=== PATIENT | female | born 1935 | race Caucasian/White ===

== ENCOUNTER 2023-07-26 14:51 | Emergency (ER) | payer MEDICARE, SELFPAY ==
[2023-07-26] VITALS (22 sets, daily range): BP systolic 126–165; BP diastolic 56–87; PULSE 78–109; RESP 14–27; TEMP 36.9; O2SAT 93–98; BMI 28.6
[2023-07-26] MEDS: SODIUM CHLORIDE 0.9% 1,000 ML 1000 ML IV (15:00)
--- NOTE | 2023-07-26 15:04 | EKG_ITS ---
[address] [address] Test Date: 2023-07-26 Pat Name: Evon Fried Department: Room: Gender: Female Weight Engineer: MARCELINO : 1935 Requested By: Order Number: [id number] Reading MD: Kyle Summers Measurements Intervals [place] Rate: 83 P: 42 TN: 190 QRS: 14 QRSD: 74 T: 71 QT: 368 QTc: 432 Interpretive Statements Normal sinus rhythm Cannot rule out Anterior infarct , age undetermined Electronically Signed On 07-26-2023 18:40:34 PDT by Kyle Summers
--- NOTE | 2023-07-26 15:11 | DI.RAD.S_ITS ---
PROCEDURE: XR CHEST 1V INDICATIONS: syncope TECHNIQUE: One view of the chest was acquired. COMPARISON: None. FINDINGS: Surgical changes and devices: None. Lungs and pleura: Mild increased vascularity. No consolidations. Mediastinum: Mediastinal contours appear normal. Heart size is enlarged. Bones and chest wall: No suspicious bony lesions. Overlying soft tissues appear unremarkable. IMPRESSION: Increased vascularity suggestive of edema. Dictated by: Imelda Shin M.D. on 07/26/2023 at 16:03 Approved by: Imelda Shin M.D. on 07/26/2023 at 16:03
--- NOTE | 2023-07-26 15:16 | DI.RAD.S_ITS ---
PROCEDURE: XR KNEE LT 3V INDICATIONS: fall, left knee pain TECHNIQUE: 3 views of the knee were acquired. COMPARISON: None. FINDINGS: Bones: No fractures or dislocations. No suspicious bony lesions. Knee arthroplasty. Hardware is intact without hardware fracture or periprosthetic lucency to suggest loosening. Alignment is stable. Soft tissues: No joint effusion. No suspicious soft tissue calcifications. IMPRESSION: No visualized acute fracture or dislocation. However, if clinical concern and/or pain persist, short interval imaging followup in 7-10 days is recommended, as occult injury cannot be definitively excluded. Dictated by: Imelda Shin M.D. on 07/26/2023 at 16:04 Approved by: Imelda Shin M.D. on 07/26/2023 at 16:04
--- NOTE | 2023-07-26 15:16 | DI.RAD.S_ITS ---
PROCEDURE: XR HIP W PEL IF DONE LT 2V INDICATIONS: left leg pain, fall TECHNIQUE: AP pelvis with lateral view(s) of the left hip(s). COMPARISON: None. FINDINGS: Bones: No fractures or dislocations. Pelvic ring appears intact. No suspicious bony lesions. Severe joint space narrowing as well as subchondral sclerosis and periarticular lucencies are noted within the right hip. Left hip arthroplasty is present. Hardware is intact without hardware fracture or periprosthetic lucency to suggest loosening. Alignment is stable. Degenerative changes are present within the lower lumbar spine. Soft tissues: The visualized bowel gas pattern is normal. No suspicious soft tissue calcifications. 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 Areas of subchondral lucency may represent cysts. However, under appropriate clinical laboratory circumstances, rosea is cannot be excluded. Left hip arthroplasty as above. Dictated by: Imelda Shin M.D. on 07/26/2023 at 16:03 Approved by: Imelda Shin M.D. on 07/26/2023 at 16:04
--- NOTE | 2023-07-26 15:20 | ED.FALL ---
HPI - Fall General Chief Complaint: Fall Stated Complaint: GLF Time Seen by Provider: 07/26/23 15:02 History of Present Illness HPI Narrative: Patient 87-year-old female history of hypertension hyperlipidemia remote PE after surgery presenting today with syncopal episode. She would her has been are visiting from [facility] he had been here for about 5 days. She has had some painful frequent urination since she arrived. She has been taking azo. Today they were out shopping, went to some restaurants she was outside when she had a brief syncopal episode. EMS reports that she was initially hypotensive 67/37. Questionable loss of consciousness takes aspirin but no anticoagulation. She denies any chest pain or palpitations. She has complaining a lot of left knee pain. She has had her hip replaced no real hip or pelvic pain. Denies any cough sore throat or any sort of upper respiratory symptoms Related Data Previous Rx's Medication Instructions Recorded cephalexin 500 mg capsule 500 mg PO BID 7 days #14 caps 07/26/23 hydrocodone 5 mg-acetaminophen 325 1 tab PO Q6H PRN pain #10 tabs 07/26/23 mg tablet Allergies Allergy/AdvReac Type Severity Reaction Status Date / Time No Known Drug Allergies Allergy Verified 07/26/23 16:59 Patient History Social History Smoking Status: Never smoker Smoking Status: Never smoker alcohol intake frequency: a few times a week Substance Use Type: does not use Exam Initial Vital Signs Initial Vital Signs: Vital Signs Pulse Rate 88 07/26/23 14:55 Pulse Oximetry 96 07/26/23 14:55 GENERAL: Alert pleasant well-appearing 87-year-old female HEENT: Head atraumatic,EOMI, pupils reactive, face symmetric, moist mucous membranes CARDIOVASCULAR: Regular rate and rhythm without murmurs, rubs or gallops. RESPIRATORY: Breath sounds equal bilaterally, no wheezes rales or rhonchi. ABDOMEN: Soft, nontender. Normoactive bowel sounds all 4 quadrants. No guarding or rebound. EXTREMITIES: Normal range of motion, no clubbing or edema. Neurovascularly intact Left knee swelling able to flex and extend new internal or external hip pain pelvis stable NEUROLOGICAL: Alert and oriented x4.Normal gait and speech. Marketing Assistant strength equal bilaterally SKIN: Warm, dry, no laceration, no petechiae, no rashes or lesions. Course Orders Ordered: Discontinued Medications Hydrocodone Bitart/Acetaminophen (Hydrocodone/Acet 5/325 Prepack) 1 bottle MISC DIRECTED ONE Stop: 07/26/23 18:19 Last Admin: 07/26/23 18:32 Dose: 1 bottle Documented By: HUSSEIN Sodium Chloride (Normal Saline 0.9%) 1,000 mls @ 1,000 mls/hr IV BOLUS ONE Stop: 07/26/23 16:10 Last Infusion: 07/26/23 15:57 Dose: Infused Documented By: Admin: 07/26/23 15:00 Dose: 1,000 mls/hr Documented By: HUSSEIN Ceftriaxone Sodium 1,000 mg/ (Sodium Chloride) 100 mls @ 200 mls/hr IV NOW ONE Stop: 07/26/23 18:19 Last Infusion: 07/26/23 19:24 Dose: Infused Documented By: Admin: 07/26/23 18:32 Dose: 200 mls/hr Documented By: HUSSEIN Ketorolac Tromethamine (Ketorolac 30 Mg/Ml Vial) 15 mg IV NOW ONE Stop: 07/26/23 16:00 Last Admin: 07/26/23 16:26 Dose: 15 mg Documented By: HUSSEIN Vital Signs Vital signs: Vital Signs - 8 hr 07/26/23 14:55 07/26/23 15:00 07/26/23 15:00 Pulse Rate 88 87 Pulse Rate [Orthostatic Lying] Pulse Rate [Orthostatic Sitting] Pulse Rate [Orthostatic Standing] Respiratory Rate 22 Blood Pressure 128/60 Blood Pressure [Orthostatic Lying] Blood Pressure [Orthostatic Sitting] Blood Pressure [Orthostatic Standing] Pulse Oximetry 96 Oxygen Delivery Method 07/26/23 15:06 07/26/23 15:06 07/26/23 15:07 Pulse Rate 88 84 Pulse Rate [Orthostatic Lying] Pulse Rate [Orthostatic Sitting] Pulse Rate [Orthostatic Standing] Respiratory Rate 16 Blood Pressure 130/63 130/63 Blood Pressure [Orthostatic Lying] Blood Pressure [Orthostatic Sitting] Blood Pressure [Orthostatic Standing] Pulse Oximetry 97 97 Oxygen Delivery Method Room Air Room Air 07/26/23 15:10 07/26/23 15:10 07/26/23 15:20 Pulse Rate 85 Pulse Rate [Orthostatic Lying] Pulse Rate [Orthostatic Sitting] Pulse Rate [Orthostatic Standing] Respiratory Rate 22 Blood Pressure 134/62 126/56 L Blood Pressure [Orthostatic Lying] Blood Pressure [Orthostatic Sitting] Blood Pressure [Orthostatic Standing] Pulse Oximetry 97 Oxygen Delivery Method Room Air 07/26/23 15:20 07/26/23 15:38 07/26/23 15:40 Pulse Rate 84 86 83 Pulse Rate [Orthostatic Lying] Pulse Rate [Orthostatic Sitting] Pulse Rate [Orthostatic Standing] Respiratory Rate 15 Blood Pressure Blood Pressure [Orthostatic Lying] Blood Pressure [Orthostatic Sitting] Blood Pressure [Orthostatic Standing] Pulse Oximetry 98 97 Oxygen Delivery Method Room Air 07/26/23 15:40 07/26/23 16:00 07/26/23 16:00 Pulse Rate 78 Pulse Rate [Orthostatic Lying] Pulse Rate [Orthostatic Sitting] Pulse Rate [Orthostatic Standing] Respiratory Rate 14 Blood Pressure 139/65 143/65 H Blood Pressure [Orthostatic Lying] Blood Pressure [Orthostatic Sitting] Blood Pressure [Orthostatic Standing] Pulse Oximetry 98 Oxygen Delivery Method 07/26/23 16:38 07/26/23 16:38 07/26/23 16:40 Pulse Rate 91 H 92 H Pulse Rate [Orthostatic Lying] Pulse Rate [Orthostatic Sitting] Pulse Rate [Orthostatic Standing] Respiratory Rate 27 H Blood Pressure 165/74 H Blood Pressure [Orthostatic Lying] Blood Pressure [Orthostatic Sitting] Blood Pressure [Orthostatic Standing] Pulse Oximetry Oxygen Delivery Method 07/26/23 16:40 07/26/23 16:41 07/26/23 16:41 Pulse Rate 93 H Pulse Rate [Orthostatic Lying] Pulse Rate [Orthostatic Sitting] Pulse Rate [Orthostatic Standing] Respiratory Rate 22 Blood Pressure 163/77 H 153/72 H Blood Pressure [Orthostatic Lying] Blood Pressure [Orthostatic Sitting] Blood Pressure [Orthostatic Standing] Pulse Oximetry Oxygen Delivery Method 07/26/23 17:00 07/26/23 17:00 07/26/23 17:14 Pulse Rate 87 Pulse Rate [Orthostatic Lying] 87 Pulse Rate [Orthostatic Sitting] 91 H Pulse Rate [Orthostatic Standing] 92 H Respiratory Rate 15 Blood Pressure 154/66 H Blood Pressure [Orthostatic Lying] 165/74 H Blood Pressure [Orthostatic Sitting] 163/77 H Blood Pressure [Orthostatic Standing] 153/72 H Pulse Oximetry 97 Oxygen Delivery Method 07/26/23 17:20 07/26/23 17:20 07/26/23 17:32 Pulse Rate 92 H 104 H Pulse Rate [Orthostatic Lying] Pulse Rate [Orthostatic Sitting] Pulse Rate [Orthostatic Standing] Respiratory Rate 27 H Blood Pressure 163/67 H Blood Pressure [Orthostatic Lying] Blood Pressure [Orthostatic Sitting] Blood Pressure [Orthostatic Standing] Pulse Oximetry 97 Oxygen Delivery Method 07/26/23 17:33 07/26/23 17:33 07/26/23 17:40 Pulse Rate 109 H 85 Pulse Rate [Orthostatic Lying] Pulse Rate [Orthostatic Sitting] Pulse Rate [Orthostatic Standing] Respiratory Rate 23 16 Blood Pressure 142/67 H Blood Pressure [Orthostatic Lying] Blood Pressure [Orthostatic Sitting] Blood Pressure [Orthostatic Standing] Pulse Oximetry 95 97 Oxygen Delivery Method Room Air 07/26/23 17:40 07/26/23 18:00 07/26/23 18:00 Pulse Rate 86 Pulse Rate [Orthostatic Lying] Pulse Rate [Orthostatic Sitting] Pulse Rate [Orthostatic Standing] Respiratory Rate 14 Blood Pressure 152/67 H 140/63 Blood Pressure [Orthostatic Lying] Blood Pressure [Orthostatic Sitting] Blood Pressure [Orthostatic Standing] Pulse Oximetry 93 Oxygen Delivery Method Room Air MDM - Fall Lab Data 07/26/23 14:40 07/26/23 14:40 Labs: Lab Results 07/26/23 07/26/23 Range/Units 14:40 16:51 WBC 13.3 H (4.5-11.0) X10^3/uL RBC 4.22 (4.0-5.2) X10^6/uL Hgb 12.0 (12.0-16.0) g/dL Hct 35.7 L (36-46) % MCV 84.5 (80-100) fL MCH 28.5 (26-34) PG MCHC 33.7 (30-36) % RDW 14.1 (11.6-14.8) % Plt Count 312 (150-400) X10^3/uL Neut % (Auto) 72.6 (50-75) % Lymph % (Auto) 17.4 L (25-40) % [place] % (Auto) 6.6 (3-14) % Eos % (Auto) 3.1 (2-4) % Baso % (Auto) 0.3 (0-2) % Neut # (Auto) 9600 H (8708-7584) /uL Lymph # (Auto) 2300 (3931-1094) /uL Garrett # (Auto) 900 (0-900) /uL Eos # (Auto) 400 (0-450) /uL Baso # (Auto) 0 (0-100) /uL PT 10.9 (9.4-12.5) SECONDS INR 1.0 (0.9-1.3) APTT 26 (25.1-36.5) SECONDS Sodium 130 L (137-145) mmol/L Potassium 3.9 (3.4-5.1) mmol/L Chloride 103 (98-107) mmol/L Carbon Dioxide 22 (22-32) mmol/L BUN 16 (7-17) mg/dL Creatinine 0.84 (0.52-1.04) mg/dL Estimated GFR > 60 (>60) mL/min BUN/Creatinine Ratio 19.0 (6-22) Glucose 158 H (80-110) mg/dL Lactate 2.0 (0.7-2.1) mmol/L Calcium 8.3 L (8.4-10.2) mg/dL Total Bilirubin 0.9 (0.2-1.3) mg/dL AST 34 (14-36) IU/L ALT 19 (<35) IU/L Alkaline Phosphatase 97 (38-126) U/L Total Creatine Kinase 45 (30-135) U/L Troponin I < 0.012 (0.01-0.034) ng/mL Total Protein 6.7 (6.3-8.2) g/dL Albumin 3.7 (3.5-5.0) g/dL Globulin 3.0 (1.7-4.1) g/dL Albumin/Globulin Ratio 1.2 (1.0-2.8) Lipase 95 (23-300) U/L Procalcitonin 0.051 (<0.5) ng/mL Urine Color [place] Urine Appearance Sl cloudy Urine pH 6.5 (4.5-8.0) Ur Specific [place] <=1.005 (1.000-1.035) Urine Protein Trace H (Negative) Urine Glucose (UA) Negative (Negative) g/dL Urine Ketones 1+ H (NEGATIVE) Urine Occult Blood Trace-intact (Negative) Urine Nitrate Positive H (Negative) Urine Bilirubin Negative (NEGATIVE) Urine Urobilinogen 2.0 H (0.2) E.U./dL Ur Leukocyte Esterase 2+ H (NEGATIVE) Urine RBC 1-5/hpf (0-5/HPF) Urine WBC 30-100/hpf H (0-5/HPF) Ur Squamous Epith Cells 0-1 /hpf (0-5/HPF) Urine Bacteria Few (2-10) H (None) Ur Culture Indicated? Specimen cultured Vol Urine Centrifuged 10ml (spun) Urine Dip Bedside Urine Glucose Negative Bedside Urine Bilirubin + 1 Bedside Urine Ketone +/- 5 Urine Specific [place] 1.010 Bedside Urine Occult Blood - Negative Bedside Urine pH 6.0 Bedside Urine Protein - Negative Bedside Urine Urobilinogen +/- 1mg Bedside Urine Nitrite + Positive Bedside Urine Leukocytes ++ 125 Esterase Imaging Data Chest x-ray: Radiologist's Impression: PROCEDURE: XR CHEST 1V INDICATIONS: syncope TECHNIQUE: One view of the chest was acquired. COMPARISON: None. FINDINGS: Surgical changes and devices: None. Lungs and pleura: Mild increased vascularity. No consolidations. Mediastinum: Mediastinal contours appear normal. Heart size is enlarged. Bones and chest wall: No suspicious bony lesions. Overlying soft tissues appear unremarkable. IMPRESSION: Increased vascularity suggestive of edema. Dictated by: Imelda Shin M.D. on 07/26/2023 at 16:03 Extremity x-ray #1: Radiologist's Impression: PROCEDURE: XR HIP W PEL IF DONE LT 2V INDICATIONS: left leg pain, fall TECHNIQUE: AP pelvis with lateral view(s) of the left hip(s). COMPARISON: None. FINDINGS: Bones: No fractures or dislocations. Pelvic ring appears intact. No suspicious bony lesions. Severe joint space narrowing as well as subchondral sclerosis and periarticular lucencies are noted within the right hip. Left hip arthroplasty is present. Hardware is intact without hardware fracture or periprosthetic lucency to suggest loosening. Alignment is stable. Degenerative changes are present within the lower lumbar spine. Soft tissues: The visualized bowel gas pattern is normal. No suspicious soft tissue calcifications. 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 Areas of subchondral lucency may represent cysts. However, under appropriate clinical laboratory circumstances, rosea is cannot be excluded. Left hip arthroplasty as above. Dictated by: Imelda Shin M.D. on 07/26/2023 at 16:03 Extremity x-ray #2: Radiologist's Impression: PROCEDURE: XR KNEE LT 3V INDICATIONS: fall, left knee pain TECHNIQUE: 3 views of the knee were acquired. COMPARISON: None. FINDINGS: Bones: No fractures or dislocations. No suspicious bony lesions. Knee arthroplasty. Hardware is intact without hardware fracture or periprosthetic lucency to suggest loosening. Alignment is stable. Soft tissues: No joint effusion. No suspicious soft tissue calcifications. IMPRESSION: No visualized acute fracture or dislocation. However, if clinical concern and/or pain persist, short interval imaging followup in 7-10 days is recommended, as occult injury cannot be definitively excluded. Dictated by: Imelda Shin M.D. on 07/26/2023 at 16:04 ECG Data Interpretation: Normal sinus rhythm rate 83 MT interval 190 QRS [address] changes or T-wave inversions MDM Narrative Medical decision making narrative: Patient is a 87-year-old female presenting today after syncopal episode. She has been having UTI symptoms for about 5 days she has been out in the heat. Brief loss of consciousness not on anticoagulation no significant sign of head injury. Blood work has been reviewed pertinent information does show leukocytosis of 13, with lactate 2.0, creatinine 0.8 troponin negative, procalcitonin 0.051 Urinalysis positive for nitrates and leukocytes consistent with UTI Imaging has been reviewed knee x-ray hip x-ray no fracture chest x-ray does show pulmonary edema but she has not having any sort of shortness of breath or hypoxia and she has no history of congestive heart failure. Patient is given a L of fluid blood pressure remained stable. She has given a dose of Rocephin here in the ED. They are traveling not able to do a pharmacy tonight. Given a prepack and [place] as well. Patient did ambulate with a knee brace and a walker but it was difficult she was able to get around. At this time she likely has a left knee sprain it is painful but no fracture. At this time does not meet any sort of admission criteria. Discharge Plan Departure Patient Disposition: Home Clinical Impression: Syncope, Left knee sprain, Acute UTI Instructions: Knee Sprain, DI for Urinary Tract Infection (UTI) Activity Restrictions/Additional Instructions: *You have been diagnosed with left knee sprain, UTI *What to do: At this time wear knee brace while ambulatory may take off at night if needed. Ice and elevate 20-30 minutes at a time. Antibiotics should start making you feel better in the next 2-3 days *Continue to take medications as directed Ibuprofen 400 mg every 6 hours for [id number] pain Tylenol 650 mg every 4-6 hours if needed for [id number] Keflex 500 mg twice a day for 7 days [place] half tablet or 1 full tablet every 6 hours or at nighttime if needed for severe pain *Follow up with your primary care provider in 2-3 days or call [phone] *Return to ER if you should have increasing pain weakness passing out or any new, worsening or concerning symptoms CONTROLLED SUBSTANCE DISCHARGE (Narcotoic/benzodiazepine/Flexeril/Phenergan) 1. You have been prescribed narcotic medications, it does have acetaminophen/Tylenol/paracetamol in it, DO NOT TAKE MORE THAN 4,00mg in 24 hours of Tylenol. TRAMADOL DOES NOT CONTAIN TYLENOL 2. Please understand that we cannot provide further refills of narcotics, benzodiazepines or controlled substances through the ED and her pain management will need to be through your provider. 3. While on these medications you cannot drive or operate heavy machinery. 4. You cannot sign legal documents or perform any duties such as this. 5. As long as you're taking opiate pain medications he should also be taking a stool softener such as Colace, Dulcolax, MiraLAX or prune juice, to help avoid constipation. Prescriptions: New hydrocodone-acetaminophen 5-325 mg tablet 1 tab PO Q6H PRN (Reason: pain) Qty: 10 0RF cephalexin 500 mg capsule 500 mg PO BID 7 Days Qty: 14 0RF Referrals: Miscellaneous,DoctorMD [Primary Care Provider] - Stand Alone Forms: Patient Portal/API
[2023-07-26 15:22] LABS: Add Manual Diff / Slide Review NO; Basophils Absolute Auto 0 /uL (0-100); Basophils Percent Auto 0.3 % (0-2); Eosinophils Absolute Auto 400 /uL (0-450); Eosinophils Percent Auto 3.1 % (2-4); Hematocrit 35.7 % (36-46); Lymphocytes Absolute Auto 2300 /uL (1100-4500); Lymphocytes Percent Auto 17.4 % (25-40); Mean Corpuscular HGB Conc 33.7 % (30-36); Mean Corpuscular Hemoglobin 28.5 PG (26-34); Mean Corpuscular Volume 84.5 fL (80-100); Monocytes Absolute Auto 900 /uL (0-900); Monocytes Percent Auto 6.6 % (3-14); Neutrophils Absolute Auto 9600 /uL (1500-7000); Neutrophils Percent Auto 72.6 % (50-75); Platelet Count 312 X10^3/uL (150-400); Red Blood Cell Count 4.22 X10^6/uL (4.0-5.2); Red Cell Distribution Width 14.1 % (11.6-14.8); White Blood Cell Count 13.3 X10^3/uL (4.5-11.0)
[2023-07-26 15:24] LABS: Prothrombin Time 10.9 SECONDS (9.4-12.5)
[2023-07-26 15:26] LABS: PTT Partial Thromboplastin Tim 26 SECONDS (25.1-36.5)
[2023-07-26 15:29] LABS: Alanine Aminotransferase 19 IU/L (<35); Albumin 3.7 g/dL (3.5-5.0); Albumin Globulin Ratio 1.2 (1.0-2.8); Alkaline Phosphatase 97 U/L (38-126); Aspartate Aminotransferase 34 IU/L (14-36); Bilirubin Total 0.9 mg/dL (0.2-1.3); Blood Urea Nitrogen 16 mg/dL (7-17); Calcium 8.3 mg/dL (8.4-10.2); Carbon Dioxide 22 mmol/L (22-32); Chloride 103 mmol/L (98-107); Creatine Kinase 45 U/L (30-135); Estimated Glomerular Filt Rate > 60 mL/min (>60); Glucose 158 mg/dL (80-110); HEMOLYSIS < 15 (0-50); Lipase 95 U/L (23-300); Potassium 3.9 mmol/L (3.4-5.1); Sodium 130 mmol/L (137-145); Total Protein 6.7 g/dL (6.3-8.2)
[2023-07-26 15:40] LABS: Troponin I < 0.012 ng/mL (0.01-0.034)
[2023-07-26 16:12] LABS: Procalcitonin 0.051 ng/mL (<0.5)
[2023-07-26] MEDS: KETOROLAC 30 MG/ML VIAL 15 MG IV (16:26)
[2023-07-26 17:55] LABS: Appearance Urine UA SL CLOUDY; Bilirubin Urine UA NEGATIVE (NEGATIVE); Color Urine UA ORANGE; Glucose Urine UA NEGATIVE (Negative); Ketones Urine UA 1+ (NEGATIVE); Leukocyte Esterase Urine UA 2+ (NEGATIVE); Nitrite Urine UA POSITIVE (Negative); Occult Blood Urine UA TRACE-INTACT (Negative); Protein Urine UA TRACE (Negative); Specific Gravity Urine UA <=1.005 (1.000-1.035)
[2023-07-26 18:04] LABS: Bacteria Urine Few (2-10); Culture Indicated Urine Specimen Cultured; RBC Urine 1-5/HPF (0-5/HPF); Squamous Epithelial Cell Urine 0-1 /HPF (0-5/HPF); Urine Volume 10mL (spun); WBC Urine 30-100/HPF (0-5/HPF); pH Urine UA 6.5 (4.5-8.0)
[2023-07-26] MEDS: HYDROCODONE/ACET 5/325 PREPACK 1 BOTTLE MISC (18:32)
[2023-07-26] MEDS: cefTRIAXone 1,000 MG in SODIUM CHLORIDE 0.9% 100 ML 200 MG IV (18:32)
== END 2023-07-26 19:47 | disposition home or self-care (01) ==
PROVIDERS: Emergency Provider Emergency Medicine
DX: S82.002A Unspecified fracture of left patella, initial encounter for closed fracture (principal); M97.12XA Periprosthetic fracture around internal prosthetic left knee joint, initial encounter; W18.30XA Fall on same level, unspecified, initial encounter; R55 Syncope and collapse; N39.0 Urinary tract infection, site not specified
CPT/HCPCS: 36415; 71045; 73502; 73562; 80053; 81001; 81003; 82550; 83605; 83690; 84145; 84484; 85025; 85610; 85730; 87040; 87086; 93005; 99284; J0696; J1885

== ENCOUNTER 2023-07-27 15:36 | Observation (INO) | payer MEDICARE, SELFPAY ==
[2023-07-27 16:00] VITALS: BP 185/82; PULSE 85; RESP 16; TEMP 36.2; O2SAT 96
[2023-07-27 16:14] VITALS: BMI 26.5
[2023-07-27] MEDS: ACETAMINOPHEN 325 MG TABLET 650 MG PO (17:55)
[2023-07-27] MEDS: diphenhydrAMINE 50 MG/ML VIAL IV (17:56)
[2023-07-27] MEDS: OXYCODONE IR 5 MG TABLET PO (17:56)
[2023-07-27] MEDS: ONDANSETRON 4 MG/2 ML INJ IV (17:56)
[2023-07-27 19:00] VITALS: BP 145/71; PULSE 75; RESP 18; TEMP 36.8; O2SAT 95
--- NOTE | 2023-07-27 19:06 | PC.NURSE ---
Late entry, pt arrived to the floor at approximately 1600. She was a direct admit from Dr. Crisostomo. Pt is A&Ox4, oriented to the room, able to make needs known. Informed the pt that she's non-weight bearing. Pt has a brace on her left leg.
--- NOTE | 2023-07-27 19:32 | PM.HP.1 ---
History of Present Illness History of Present Illness Date Patient Seen: 07/27/23 Chief complaint: LT FEMUR FRACTURE Narrative: 87-year-old female seen in my clinic today. She had presented to the emergency department yesterday and initially radiographs were read as negative however subsequent over-read indicated that she had a fracture. She was called with these results and brought to my clinic for determination of management. She has been here from [facility]. She was in [place] when the injury occurred. She reports that she got lightheaded and fell. Workup in the emergency department indicated that she had a urinary tract infection. She has been prescribed antibiotics for this. 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 These were both performed by Luis Lam in [place]. She reports pain in her left knee. She says it is worsened by movement and partially alleviated by rest. It has been present since the time of [facility] Social History household members: significant other Smoking Status: Never smoker alcohol intake: current Meds Home Medications and Allergies Home Medications Medication Instructions Recorded Confirmed Type Adult Probiotic 2 cap PO PRN PRN GUT 07/27/23 07/27/23 History Calcium-Vitamin D See Rx Instructions .Route .COMPLEX 07/27/23 07/27/23 History CoQ10 SG 100 1 tab PO DAILY 07/27/23 07/27/23 History Glucosamine Chondroitin 1 tab PO BID 07/27/23 07/27/23 History Pravachol 1 PO BEDTIME 07/27/23 History Singulair 1 PO DAILY 07/27/23 History albuterol inhalation PRN PRN SOB 07/27/23 History amlodipine 5 mg tablet 5 mg PO DAILY 07/27/23 07/27/23 History aspirin 81 mg tablet,delayed 81 mg PO DAILY 07/27/23 07/27/23 History release calcitriol 0.5 mcg capsule 0.5 mcg PO DAILY 07/27/23 07/27/23 History cetirizine 10 mg tablet (Zyrtec) PO DAILY 07/27/23 History fluorometholone 0.1 % eye 1 drp EYE-BOTH Q OTHER DAY 07/27/23 07/27/23 History drops,suspension (FML Liquifilm) fluticasone furoate 100 1 ea inhalation DAILY 07/27/23 07/27/23 History mcg-vilanterol 25 mcg/dose inhalation powder (Breo Ellipta) fluticasone propionate 50 2 spray intranasal DAILY 07/27/23 07/27/23 History mcg/actuation nasal spray,suspension guaifenesin 600 mg tablet, 600 mg PO BID 07/27/23 07/27/23 History extended release 12 hr (Mucinex) levothyroxine 88 mcg tablet 88 mcg PO DAILY 07/27/23 07/27/23 History (Synthroid) losartan 50 mg tablet 75 mg PO DAILY 07/27/23 07/27/23 History mecobalamin-levomefolate 1 tab PO DAILY 07/27/23 07/27/23 History calcium-pyridoxal phos 3 mg-35 mg-2 mg tablet omeprazole 20 mg capsule,delayed 20 mg PO BID 07/27/23 07/27/23 History release Allergies Allergy/AdvReac Type Severity Reaction Status Date / Time No Known Drug Allergies Allergy Verified 07/26/23 16:59 Review of Systems Review of Systems ROS: Yes All systems reviewed with the patient and are negative except as otherwise documented Exam Vital Signs (past 8 hours): - 07/27/23 16:00 Temperature 97.2 F L Pulse Rate 85 Respiratory Rate 16 Blood Pressure 185/82 H Pulse Oximetry 96 Oxygen Flow Rate 0 Oxygen Flow Rate 0 Narrative Exam Narrative: Left lower extremity examination demonstrates a well-healed surgical incision over the anterior knee. There is swelling present around the thigh and ecchymosis. She is tender to palpation in the medial femoral condyle. Range of motion examination deferred given known injury. Sensation intact to light touch in the entire foot. Const General: cooperative Orientation: alert and awake [facility] Head: normal to inspection Ears: hearing grossly normal bilaterally Eyes General: appearance normal, both eyes and all related structures Neck Neck: normal visual inspection Resp Effort & Inspection: normal respiratory effort and able to speak in complete sentences Cardio Pulses: other (peripheral pulses present) Skin Lesions: no lesions Rashes: no rashes Neuro General: patient alert, patient awake and moves all extremities Psych Appearance: grossly normal Objective Imaging Left femur radiographs: My impression: Nondisplaced medial femoral condyle fracture above a prior total knee arthroplasty Assessment & Plan Assessment and plan (1) Closed left femoral fracture: Status: Acute Plan I had a long discussion with the patient today as well as her family including her power of city attorney over the phone. Her fracture did not displace in remains well aligned on both the AP and lateral views. I discussed with her that operative fixation could allow earlier mobilization but would involve a major surgery. It 87 she is very reticent to pursue this. This is understandable. With nonweightbearing to her injured extremity if we are able to maintain the knee in its current alignment it should heal and allow methodist of her function following healing. While there certainly is a consideration of pursuing fixation, in her case I think that if we are able to avoid surgery in a patient of her age and medical condition it would obviously be referable. I have accordingly therefore recommended we begin with nonweightbearing restrictions and place her in a knee immobilizer. Because of the social difficulties associated with maintaining this while she is away from home, I have admitted her to the hospital. She is adamant that she would like to returned to [place] for convalescence however it will be very challenging to coordinate the logistics of this travel. I therefore would greatly appreciate the assistance of social work and physical therapy in determining whether or not it is feasible for her to make that trip while maintaining nonweightbearing precautions in order to allow her to return home. We can have further discussions about operative fixation as well however it was the family strong preference to avoid surgery if at all possible. Quality VTE Deep Vein Thrombosis/Pulmonary Embolism Present on Admission: No
--- NOTE | 2023-07-27 21:22 | P.PN_ITS ---
Subjective Subjective Interval history: I had another conversation with the patient and her family this evening. Her situation represents a challenging decision. Her fracture is very well aligned and would heal without surgery but there are real consequences to the duration of immobility that would be required to allow her to reliably heal this. I have real concerns about her risk of a development of a blood clot or about her ability to regain her mobility following the atrophy of 2 months of minimized am bulation. Additionally should she have propagation of the fracture into her total knee it could destabilize her total knee resulting in requirement of distal femoral replacement. Fixation of her fracture would allow earlier mobilization but she would still have impaired mobility, still might not be able to travel back to [place] in the near future, and still might require a stay in a nursing facility temporarily. I do not think that there was a clear cut definitive right answer in the situation and will have further discussions moving forward with the family regarding operative versus nonoperative treatment Exam Vital Signs (past 8 hours): - 07/27/23 16:00 07/27/23 19:00 Temperature 97.2 F L 98.2 F Pulse Rate 85 75 Respiratory Rate 16 18 Blood Pressure 185/82 H 145/71 H Pulse Oximetry 96 95 Oxygen Flow Rate 0 0 Oxygen Flow Rate 0 PFSH Social History household members: significant other Smoking Status: Never smoker alcohol intake: current Quality VTE Deep Vein Thrombosis/Pulmonary Embolism Present on Admission: No
[2023-07-27] MEDS: ASPIRIN EC 81 MG TABLET PO (22:00)
[2023-07-27] MEDS: DOCUSATE 100 MG CAPSULE PO (22:00)
[2023-07-27] MEDS: LACTOBACILLUS ACIDOPHILUS TABLET 2 EACH PO (22:00)
[2023-07-27] MEDS: FLUTICASONE 120 SPRAY/16 GM SPRAY.SUSP NASAL (22:00)
[2023-07-27] MEDS: guaiFENesin ER 600 MG TAB PO (22:00)
[2023-07-27] MEDS: PANTOPRAZOLE DR 20 MG TABLET PO (22:06)
[2023-07-27] MEDS: TRAMADOL 50 MG TABLET PO (22:08)
[2023-07-27] MEDS: AMLODIPINE 5 MG TABLET PO (22:09)
[2023-07-27] MEDS: diphenhydrAMINE 25 MG TABLET 50 MG PO (22:09)
[2023-07-28 06:50] LABS: Hematocrit 35.5 % (36-46); Mean Corpuscular HGB Conc 33.8 % (30-36); Mean Corpuscular Hemoglobin 28.6 PG (26-34); Mean Corpuscular Volume 84.5 fL (80-100); Platelet Count 262 X10^3/uL (150-400); Red Cell Distribution Width 14.1 % (11.6-14.8); White Blood Cell Count 10.3 X10^3/uL (4.5-11.0)
[2023-07-28] MEDS: LEVOTHYROXINE 88 MCG TABLET PO (06:59)
[2023-07-28] MEDS: PANTOPRAZOLE DR 20 MG TABLET PO (06:59)
[2023-07-28] MEDS: ACETAMINOPHEN 325 MG TABLET 650 MG PO ×3 (06:59→22:46)
[2023-07-28 08:00] VITALS: BP 151/69; PULSE 89; RESP 16; TEMP 36.6; O2SAT 99
[2023-07-28] MEDS: ASPIRIN EC 81 MG TABLET PO (09:00)
[2023-07-28] MEDS: LOSARTAN 50 MG TABLET 75 MG PO (09:00)
[2023-07-28] MEDS: polyethylene glycoL 3350 17 GM POWD.PACK PO (09:00)
[2023-07-28] MEDS: DOCUSATE 100 MG CAPSULE PO ×2 (09:01→20:08)
[2023-07-28] MEDS: BUDESONIDE 0.5 MG/2 ML NEB INH ×2 (09:53→19:29)
[2023-07-28 09:54] VITALS: PULSE 80; RESP 16
--- NOTE | 2023-07-28 10:40 | PT.IIE ---
Current Diagnoses Unspecified fracture of left femur, initial encounter for closed fracture (07/27/23) Physical Therapy Inpatient Evaluation/Re-Eval M1 PT/OT-IP Prior Functional Status Start: 07/28/23 14:36 Freq: NEEDED Status: Active Protocol: Document 07/28/23 10:40 AB (Rec: 07/28/23 14:50 AB [id number]) Medical Review Prior Functional Status Medical History Reviewed Yes Communication able to make needs known Mobility and Gait pt stated that she was independent with all mobilities and ambulation without AD Social History Household Members significant other Living Arrangements House Number of Floors (Floors) One Floor Number of Stairs To Enter/Railing? pt lives in [place] and here in [place] with significant other visiting family home set up provided was regarding significant other's daughter's house: 2 platform step to enter Home Environment High Toilet,Tub/Shower M2 PT-IP Current Condition Start: 07/28/23 14:36 Freq: NEEDED Status: Active Protocol: Document 07/28/23 10:40 AB (Rec: 07/28/23 14:50 AB [id number]) Physical Therapy Current Condition Current Condition Evaluation Date 07/28/23 Treatment Diagnosis L distal femur fx; difficulty in walking Onset Date 07/27/23 M3 PT-IP Subjective Start: 07/28/23 14:36 Freq: NEEDED Status: Active Protocol: Document 07/28/23 10:40 AB (Rec: 07/28/23 14:50 AB [id number]) Subjective Physical Therapy Visit Type Type Initial Evaluation Visit Start Time 10:40 Visit Stop Time 11:25 Number of STRING STUDIES DIRECTOR Visits 0 Physical Therapy Visit Comments Patient Comments agreeable to do PT Therapy Pain Assessment Pain When Pain Assessed At Rest Pain Present Pain Present Pain Reported Location Left Leg Intensity 2 Scale Used Numeric (0 - 10) Pain Behaviors Guarding Pain Management Techniques Apply Cold,Modification of Treatment,Re-positioning, Timing of Activity with Medications M4 PT-IP Mobility and Gait Start: 07/28/23 14:36 Freq: NEEDED Status: Active Protocol: Document 07/28/23 10:40 AB (Rec: 07/28/23 14:50 AB [id number]) PT-Bed Mobility Assessment Supine to Sit Supine to Sit Minimal Assistance PT-Transfer Assessment Sit to and From Stand Sit to and from Stand Maximum Assistance,1 Person Assistance,2 Person Assistance ,Use of Upper Extremities Equipment Transfer Assistive Device Gait Belt,Front Wheeled Walker Orthotic/Prosthetic Devices or Brace: No Transfers Transfer Destination Chair Transfer Technique Stand Step Pivot Transfer Ability Level of Assist Maximum Assistance,1 Person Assistance,2 Person Assistance ,Use of Upper Extremities Comments Mobility Comments pt supine in bed. significant other in room with pt. obtained PLOF and home set up from pt. pt s/p fall and sustained a L distal femur fx and no surgery at this time but pt is on a knee immobilizer and will be NWB on LLE. readjusted knee immobilizer in supine. BP in supine: 141/70. pt completed supine to sit min A and max cues. able to sit on EOB CGA. educated pt on how to maintain NWB on LLE for sit <>stand and transfers. pt completed sit to stand max A and max cues. completed stand pivot transfer using FWW initially max A x 1 and max cues but increase assistance to max A x 1-2 midway with transfer as pt was trying to sit midway during turning towards the chair. pt stated that she is tired just by doing the transfer and refused to ambulated. agreed to stay up on the chair. positioned pt on the chair. call light and table placed within reach. PT-Balance Assessment Sitting Balance and Reactions Static Sitting Balance Ability Good Dynamic Sitting Balance Ability Fair Standing Balance and Reactions Static Standing Balance Ability Poor Dynamic Standing Balance Ability Poor Device Used FWW M5 PT-IP Objective Assessments Start: 07/28/23 14:36 Freq: NEEDED Status: Active Protocol: Document 07/28/23 10:40 AB (Rec: 07/28/23 14:50 AB [id number]) Orientation Orientation/Cognition Level of Alertness Alert Orientation Name,Place,Situation Language Function Ability Hard of Hearing Safety Awareness Decreased Safety Awareness Memory Description Short Term Impaired Gross Range of Motion Lower Extremity ROM Assessment Within Functional Limits Impairments L knee NT Coordination Assessment Gross Coordination Gross Coordination WNL Muscle Tone Muscle Tone WNL Yes M6 PT-IP Treatment Start: 07/28/23 14:36 Freq: NEEDED Status: Active Protocol: Document 07/28/23 10:40 AB (Rec: 07/28/23 14:50 AB [id number]) Physical Therapy Treatment Education Education Provided Precautions,Weight Bearing Status,Safety M7 PT-IP Assessment and Plan Start: 07/28/23 14:36 Freq: NEEDED Status: Active Protocol: Document 07/28/23 10:40 AB (Rec: 07/28/23 14:50 AB [id number]) PT Summary Assessment and Plan Potential Rehabilitation Potential Fair Status of Condition at Evaluation Evolving Summary Impairments Pain,ROM,Strength,Balance, Coordination,Sensation,Tone, Cognition,Bed Mobility, Transfers,Gait,Activity Tolerance Assessment Summary pt is an 87 y/o F s/p fall who sustained a L distal femur fx and not surgical intervention at this time. pt is NWB on LLE and is on a knee immobilizer. pt requiring max A x 1-2 for transfers using FWW and max cues. pt will require SNF rehab to improve overall strength and mobility. Goals Bed Mobility Goal Independent Transfer Goal Contact Guard Assistance,Front Wheeled Walker Gait Goal Contact Guard Assistance,Front Wheel Walker Gait Distance 25 Other Goals improve transfers using FWW mod I; ambulation using FWW ~ 40 ft SBA Days to Meet Goals 10 Frequency of Treatment Frequency Of Treatment Once a Day Treatment Plan Physical Therapy Treatment Plan Bed Mobility Training,Transfer Training,Gait Training, Therapeutic Exercise,Balance Retraining,Post Op Education, Discharge Planning,Hot or Cold Pack,Neuromuscular Re-ed, Coordination Retraining,Manual Therapy Precautions Brace L knee immobilizer Weight Bearing Status Weight Bearing Status Non-Weight Bearing Allowed Weight Bearing Amount (enter % LLE NWB or #) (%) Recommendations To Nursing Amount of Assist Needed 2 Person Assist Discharge Recommendations PT Discharge Recommendations SNF Rehab Transportation Needs at Discharge Wheelchair/Cabulance
[2023-07-28] MEDS: ALBUTEROL 2.5 MG/3 ML NEB (ADULT) INH (13:43)
[2023-07-28 13:46] VITALS: PULSE 76; RESP 16; O2SAT 97
[2023-07-28] MEDS: cephALEXin 250 MG CAPSULE 500 MG PO ×2 (14:55→20:08)
--- NOTE | 2023-07-28 15:39 | CM.DANOTE ---
Assessment: Pt is a 87yo female, resident of [place], [place], is admitted for a left femure fracture. Pt lives in a house with her significant other, Choco. Pt's insurance is Medicare and [employer]. Reviewed chart and team rounds for pt's medical status and initial discharge needs. DCP met w/patient at bedside; introduced self and role. Pt was found sitting up a chair, alert and oriented, cooperative with assessment. Pt confirmed living situation in [place] and good support in significant other and daugher. Pt expressed preference in returning home and that she has a return flight to [place] on Monday. Pt awaiting to speak with Dr. Hernandez about plans for discharge, pt endorsed that she is not agreeable to the recommendation of surgery at this time. Pt reports although she is non weightbearing, she has very minimal pain and believes she can return home with proper coordination. Pt denied any discharge needs at this time. Plan: Awaiting PT/OT evaluations and coordination with ortho. CM team will plan to follow clinical course closely for coordination of discharge plan. LEESA Livingston Discharge Planning/Care Management Discharge Assessment Start: 07/28/23 15:37 Freq: Status: Active Protocol: Document 07/28/23 15:37 MW (Rec: 07/28/23 15:39 MW [id number]) Discharge Planning Assessment Assigned Silo Erector RADHA Malcolm DPBERNIE/Assigned Designee Name Choco Patterson, Significant Other Contact Information [phone] Advance Directives? No History Provided By Patient,Medical Record Has Patient been admitted in last 30 No days? Prior Living Arrangements House Household Members significant other Type of transporation used prior to Drives own vehicle admit Independent with ADL's Yes Is patient alert and oriented? Yes Caregiver for Another No Barriers to Discharge Yes Comment Patient lives in [place] and is only visiting when this happened. Discharge pending medical clearance for a safe transfer/flight back home. Discharge Plan Home Whiteboard Updated in Patient Room with Yes name and ext. # of Silo Erector Comment [phone] Please Provide Date Initial DC 07/28/23 Assessment Was Performed Next Review Type Continued Stay Review
--- NOTE | 2023-07-28 16:58 | P.PN_ITS ---
Subjective Subjective Interval history: I saw the patient again this morning as well as this afternoon. I just had a long conversation with her power of compliance attorney, her [id number], who lives in [place]. Since her presentation yesterday I have had more time to think about her situation and think that there are 2 realistic options for her. The 1st would be to proceed with surgery. This would consist of plate fixation through a medial approach to stabilize her fracture and allow earlier mobilization. The 2nd would be my initial plan of nonoperative treatment. I explained the risks and benefits of these options to the family in detail. The risks of surgery are those inherent to any procedure, such as the risks associated with anesthesia and blood loss. Additionally any time we open up a total joint there is a risk of a periprosthetic joint infection. I would not plan to revise the total joint as I would only be using plate fixation around it however there would be that possibility. She would be weightbearing as tolerated postoperatively. Alternatively she can likely successfully treat this fracture nonoperatively as it remains appropriately aligned. This would involve 8 weeks of nonweightbearing. She could have some knee range of motion during that time and would not have to have a knee immobilizer in place while she was in a seated position. I would recommend having a knee immobilizer on while sleeping due to the risks of displacing the fracture while she is asleep should she rolled over while she does not remember that she is injured. The risks of her extended period of nonweightbearing would be the development of a blood clot or pneumonia. Unavoidable she would have muscular atrophy and would take a long time to build back up her strength after having been sedentary for that period of time. I discussed these in detail with the family and explained that I do not think there is a definitive right answer in her situation. They eventually elected to proceed with nonoperative treatment largely based on the patient's strong preference for avoiding surgery if at all possible. I think this is a reasonable decision and they all seem well informed about the up sides and downsides of it. In order to accommodate their wishes we will work to help her with transportation back to [place]. She already has follow up arranged in [place] and I actually think it would be perfectly reasonable to elect to proceed with surgery there in her own community with a surgeon that she is familiar with should she decide to do so. Obviously should she change her mind I would be happy to performed the procedure myself here. In the meantime we will continue with inpatient care in preparation for her transportation back to [place]. I will have her on 325 mg daily aspirin. She will get respiratory therapy. She will remain nonweightbearing in her knee immobilizer but it can be removed whenever she has in a seated position throughout the day. I do want her to sleep in the knee immobilizer. The assistance of social work and physical therapy will be greatly appreciated in helping her figure out how to navigate the logistics of traveling back to [place] while maintaining a nonweightbearing status. Exam Vital Signs (past 8 hours): - 07/28/23 09:54 07/28/23 13:46 Pulse Rate 80 76 Respiratory Rate 16 16 Pulse Oximetry 97 Oxygen Delivery Method Room Air Oxygen Delivery Method Room Air Oxygen Flow Rate 0 Objective Labs 07/28/23 06:26 Labs: Laboratory Results - last 24 hr 07/28/23 06:26 WBC 10.3 RBC 4.20 Hgb 12.0 Hct 35.5 L MCV 84.5 MCH 28.6 MCHC 33.8 RDW 14.1 Plt Count 262 PFSH Social History household members: significant other Smoking Status: Never smoker alcohol intake: current Quality VTE Deep Vein Thrombosis/Pulmonary Embolism Present on Admission: No
[2023-07-28 19:35] VITALS: PULSE 80; RESP 16
[2023-07-28 19:37] VITALS: BP 142/75; PULSE 71; RESP 18; TEMP 36.6; O2SAT 97
[2023-07-28] MEDS: SENNOSIDES 8.6 MG TABLET 17.2 MG PO (20:08)
[2023-07-28] MEDS: guaiFENesin ER 600 MG TAB PO (20:08)
[2023-07-28] MEDS: AMLODIPINE 5 MG TABLET PO (20:08)
[2023-07-28] MEDS: FLUTICASONE 120 SPRAY/16 GM SPRAY.SUSP NASAL (20:09)
[2023-07-28] MEDS: SODIUM CHLORIDE 0.9% FLUSH 10 ML IV (20:09)
--- NOTE | 2023-07-28 23:17 | PC.NURSE ---
Patient is alert and oriented. [place] despite wearing bilateral hearing aids. Breath sounds CTA with RA sat of 97%. HRR w/BP of 142/75. Denied nausea. BT present and is passing flatus. Continent of urine and denies dysuria, frequency or urgency now that she is being treated with po ATB for UTI. Is able to move herself in bed. Up to BSC/chair with walker and 2 assists as is NWB on left leg. Immobilizer on left LE and CMS is intact except for chronic bilateral foot neuropathy. SCD applied to right leg (immobilizer on left leg). Did complain of 3/10 left leg pain earlier and was medicated with Tylenol; declined ice pack. Fall risk score is high and bed alarm is activated.
[2023-07-29] MEDS: LEVOTHYROXINE 88 MCG TABLET PO (06:16)
[2023-07-29] MEDS: PANTOPRAZOLE DR 20 MG TABLET PO (06:16)
--- NOTE | 2023-07-29 07:15 | P.PN_ITS ---
Subjective Subjective Date Patient Seen: 07/29/23 Time Patient Seen: 07:15 Interval history: Patient's pain is [id number]. Patient is here with her partner who has family in [place] in [place]. Currently working on transportation home for Monday. Exam Vital Signs (past 8 hours): Oxygen Delivery Method Room Air Oxygen Flow Rate 0 Narrative Exam Narrative: 87-year-old female resting comfortably in bed in no apparent distress. Motor functions intact bilateral lower extremities. Sensation grossly intact to light touch bilateral lower extremities. Const General: cooperative and comfortable Orientation: alert Resp Effort & Inspection: normal respiratory effort and able to speak in complete sentences Objective Labs 07/28/23 06:26 [facility] Social History household members: significant other Smoking Status: Never smoker alcohol intake: current Assessment & Plan Assessment & Plan narrative: Nondisplaced medial femoral condyle fracture above prior total knee arthroplasty, left Non op treatment for now. As patient has strong preference to avoid surgery if at all possible. Patient has follow-up arranged in [place]. Aspirin 325 mg daily for DVT prophylaxis. Nonweightbearing left lower extremity in her knee immobilizer, knee immobilizer may be removed when she is seated position throughout the day. Recommend sleeping with knee immobilizer on. Case management to assist with navigating logistics to travel back to [place] while maintaining nonweightbearing status left lower extremity. Patient will need wheelchair dispensed for home use and to travel back to [place] Per patient flight arrangements pending likely Monday July 31, 2023 Discharge today or tomorrow pending partners availability and housing. Quality VTE Deep Vein Thrombosis/Pulmonary Embolism Present on Admission: No
[2023-07-29] MEDS: BUDESONIDE 0.5 MG/2 ML NEB INH ×2 (08:26→17:43)
[2023-07-29] MEDS: ALBUTEROL 2.5 MG/3 ML NEB (ADULT) INH ×3 (08:27→22:23)
[2023-07-29 08:38] VITALS: PULSE 98; RESP 16; O2SAT 97
[2023-07-29] MEDS: ACETAMINOPHEN 325 MG TABLET 650 MG PO ×3 (08:49→22:03)
[2023-07-29] MEDS: LOSARTAN 50 MG TABLET 75 MG PO (08:50)
[2023-07-29] MEDS: DOCUSATE 100 MG CAPSULE PO (08:50)
[2023-07-29] MEDS: polyethylene glycoL 3350 17 GM POWD.PACK PO (08:51)
[2023-07-29] MEDS: ASPIRIN EC 81 MG TABLET 325 MG PO (08:54)
[2023-07-29 10:03] VITALS: BP 176/87; RESP 16; TEMP 36.7; O2SAT 96
[2023-07-29] MEDS: cephALEXin 250 MG CAPSULE 500 MG PO ×2 (10:12→20:05)
--- NOTE | 2023-07-29 10:30 | PT.IPTN ---
Current Diagnoses Unspecified fracture of left femur, initial encounter for closed fracture (07/27/23) Physical Therapy Treatment Note M2 PT-IP Current Condition Start: 07/28/23 14:36 Freq: NEEDED Status: Active Protocol: Document 07/28/23 10:40 AB (Rec: 07/28/23 14:50 AB [id number]) Physical Therapy Current Condition Current Condition Evaluation Date 07/28/23 Treatment Diagnosis L distal femur fx; difficulty in walking Onset Date 07/27/23 M3 PT-IP Subjective Start: 07/28/23 14:36 Freq: NEEDED Status: Active Protocol: Document 07/29/23 10:30 AB (Rec: 07/29/23 13:22 AB [id number]) Subjective Physical Therapy Visit Type Type Treatment Note Visit Start Time 10:30 Visit Stop Time 11:15 Number of MERCERIZER MACHINE OPERATOR Visits 0 Physical Therapy Visit Comments Patient Comments agreeable to do PT Therapy Pain Assessment Pain When Pain Assessed At Rest Pain Present Pain Present Pain Reported Location Left Leg Intensity 3 Scale Used Numeric (0 - 10) Pain Management Techniques Apply Cold,Distraction, Modification of Treatment,Re- positioning,Timing of Activity with Medications M4 PT-IP Mobility and Gait Start: 07/28/23 14:36 Freq: NEEDED Status: Active Protocol: Document 07/29/23 10:30 AB (Rec: 07/29/23 13:22 AB [id number]) PT-Bed Mobility Assessment Supine to Sit Supine to Sit Standby Assistance PT-Transfer Assessment Sit to and From Stand Sit to and from Stand Maximum Assistance,1 Person Assistance,Use of Upper Extremities Equipment Transfer Assistive Device Gait Belt,Front Wheeled Walker Orthotic/Prosthetic Devices or Brace: No Transfers Transfer Destination Chair Transfer Technique Stand Step Pivot Transfer Ability Level of Assist Maximum Assistance,1 Person Assistance,Use of Upper Extremities Comments Mobility Comments EMR reviewed. DESHAUN kang ordered w/c for pt. Called DESHAUN Kang for clarification. Informed PA that the hospital does not dispense w/c and pt has to call [employer] and pt was provided with a list already. also stated on DESHAUN kang 's progress note the pt is allowed to take knee immobilizer off when seated. asked if pt is allowed to have immobilzer off in seated, does that mean that pt allowed to bend her L knee and PA stated that pt is not allowed to bend her L knee. informed pt and pt also stated that she is more comfortable keeping her knee in the immobilizer. pt in room with her significant other and significant other's daughter. informed regarding obtained a w/c and stated that they have taken care of that already. pt plans to take a flight back to [place] on monday. informed regarding amount of assistance pt needed and safe transfer methods and L knee precautions and NWB status. significant other's daughter stated that they got a first class ticket back and also requested a full assistance on the w/c for pt to get into her seat on the plane. family is fully aware of pt's needs and precautions. pt agreed to do PT. completed supine to sit SBA with cues. able to sit on EOB CGA. required max assist for LLE support to be able to scoot to EOB. pt completed sit to stand from EOB max A and pivot transfer to chair using FWW max A and cues for NWB on LLE. Pt rested. (+) SOB but O2 sat normal. pt easily gets anxious and can be impulsive. pt completed sit to stand from chair max A and max cues. completed hoping in place with instruction to use UE on FWW for support. informed regarding doing same technique to be being able to have RLE clear off the floor to be able to transfer better and safer. pt understood. pt stated that she is tired and just wanted to rest. positioned pt on the chair. call light and table placed within reach. ice pack provided. M5 PT-IP Objective Assessments Start: 07/28/23 14:36 Freq: NEEDED Status: Active Protocol: Document 07/28/23 10:40 AB (Rec: 07/28/23 14:50 AB [id number]) Orientation Orientation/Cognition Level of Alertness Alert Orientation Name,Place,Situation Language Function Ability Hard of Hearing Safety Awareness Decreased Safety Awareness Memory Description Short Term Impaired Gross Range of Motion Lower Extremity ROM Assessment Within Functional Limits Impairments L knee NT Coordination Assessment Gross Coordination Gross Coordination WNL Muscle Tone Muscle Tone WNL Yes M6 PT-IP Treatment Start: 07/28/23 14:36 Freq: NEEDED Status: Active Protocol: Document 07/29/23 10:30 AB (Rec: 07/29/23 13:22 AB [id number]) Physical Therapy Treatment Education Education Provided Precautions,Weight Bearing Status,Safety M7 PT-IP Assessment and Plan Start: 07/28/23 14:36 Freq: NEEDED Status: Active Protocol: Document 07/29/23 10:30 AB (Rec: 07/29/23 13:22 AB [id number]) PT Summary Assessment and Plan Potential Rehabilitation Potential Fair Summary Impairments Pain,ROM,Strength,Balance, Coordination,Sensation,Tone, Cognition,Bed Mobility, Transfers,Gait,Activity Tolerance Progress Towards Goals Slow Progress due to Activity Tolerance,Slow Progress - Other Assessment Summary pt improving slowly and requiring max A with transfers using FWW. max cues for precautions and safety. pt continues not being able to ambulate. pt will require SNF rehab to improve overall strength and mobility independence. Goals Bed Mobility Goal Independent Transfer Goal Contact Guard Assistance,Front Wheeled Walker Gait Goal Contact Guard Assistance,Front Wheel Walker Gait Distance 25 Other Goals improve transfers using FWW mod I; ambulation using FWW ~ 40 ft SBA Days to Meet Goals 10 Frequency of Treatment Frequency Of Treatment Once a Day Treatment Plan Physical Therapy Treatment Plan Bed Mobility Training,Transfer Training,Gait Training, Therapeutic Exercise,Balance Retraining,Post Op Education, Discharge Planning,Hot or Cold Pack,Neuromuscular Re-ed, Coordination Retraining,Manual Therapy Precautions Brace L knee immobilizer Weight Bearing Status Weight Bearing Status Non-Weight Bearing Allowed Weight Bearing Amount (enter % LLE NWB or #) (%) Recommendations To Nursing Amount of Assist Needed 2 Person Assist Discharge Recommendations PT Discharge Recommendations SNF Rehab Transportation Needs at Discharge Wheelchair/Cabulance
--- NOTE | 2023-07-29 14:11 | CM.DPC ---
DCP Home planning Cont: Per Ortho PA, further discussion regarding pt and family plan of not doing surgery and discharging to home in [place] and not doing local SNF and plan of discharge tomorrow Mon. SW met bedside with pt, spouse, family support person and then Dtr ericknatalia Val and family member Elizabeth via speaker phone and explained role. SW assisted with problem solving need for w/c at d/c and Elizabeth will arrive with one bedside likely today vs tomorrow AM for pt to use and take home. Dtr jaden Neal and pt's son Navi will fly into [place] tomorrow Mon and will be bedside to provide transport for pt and spouse to [facility] they booked a w/c accessible room and purchased plane tickets for 07/30 back to home with family there for assist on the way back. Family requests pt's Rx be sent to [facility] at the [facility] location so that family friend can picking machine operator today Sat so that pt has the medication for discharge tomorrow to [facility] in [place]. [facility] updated RN and Ortho PA who confirms he will send the Rx to the [facility] today to be filled. Plan: [facility] to follow for plan of discharge tomorrmon with multiple family members and w/c already secured and flight back to [place] Monday with family present on the flight back. RADHA Dolan
[2023-07-29 17:43] VITALS: PULSE 83; RESP 18
[2023-07-29] MEDS: SODIUM CHLORIDE 0.9% FLUSH 10 ML IV ×2 (18:33→20:07)
[2023-07-29] MEDS: guaiFENesin ER 600 MG TAB PO (20:05)
[2023-07-29] MEDS: AMLODIPINE 5 MG TABLET PO (20:05)
[2023-07-29] MEDS: FLUTICASONE 120 SPRAY/16 GM SPRAY.SUSP NASAL (20:06)
[2023-07-29 20:39] VITALS: BP 158/77; PULSE 75; RESP 16; TEMP 36.7; O2SAT 94
--- NOTE | 2023-07-29 23:19 | PC.NURSE ---
Patient is alert and oriented. APACHE and wears bilateral hearing aids. Breath sounds CTA with RA sat of 94% but has coarse sounding moist cough which cleared following nebulizer Rx. No SOB at rest but reports feeling SOB with activity. HRR w/BP of 158/77. Denied nausea. BT hypoactive but had BM today; declined bowel meds tonight. Denied any dysuria, frequency or urgency since starting po ATB for UTI. Is able to turn herself in bed. Gets OOB to chair/BSC with walker and 2 assists as is NWB on left leg related to fx; is wearing immobilizer. Did request tylenol + ice pack for 4/10 pain in left leg and is currently asleep. CMS is intact except for chronic bilateral LE neuropathy. Wearing right calf SCD. Fall risk score is high and bed alarm is activated. Anticipating discharge tomorrow.
[2023-07-30] MEDS: LEVOTHYROXINE 88 MCG TABLET PO (05:56)
[2023-07-30] MEDS: PANTOPRAZOLE DR 20 MG TABLET PO (05:56)
[2023-07-30 08:40] VITALS: PULSE 87; RESP 16; O2SAT 97
[2023-07-30] MEDS: ALBUTEROL 2.5 MG/3 ML NEB (ADULT) INH ×2 (08:40→16:39)
[2023-07-30] MEDS: BUDESONIDE 0.5 MG/2 ML NEB INH ×2 (08:40→16:39)
[2023-07-30 09:46] VITALS: BP 158/77
[2023-07-30] MEDS: LOSARTAN 50 MG TABLET 75 MG PO (09:46)
[2023-07-30] MEDS: cephALEXin 250 MG CAPSULE 500 MG PO (09:47)
[2023-07-30] MEDS: guaiFENesin ER 600 MG TAB PO (09:47)
[2023-07-30] MEDS: SODIUM CHLORIDE 0.9% FLUSH 10 ML IV (09:48)
[2023-07-30] MEDS: ACETAMINOPHEN 325 MG TABLET 650 MG PO ×2 (09:49→16:34)
[2023-07-30] MEDS: ASPIRIN EC 325 MG TABLET PO (10:04)
[2023-07-30] MEDS: calcitrioL 0.25 MCG CAPSULE 0.5 MCG PO (10:07)
--- NOTE | 2023-07-30 10:55 | PT.IPTN ---
Current Diagnoses Unspecified fracture of left femur, initial encounter for closed fracture (07/27/23) Physical Therapy Treatment Note M2 PT-IP Current Condition Start: 07/28/23 14:36 Freq: NEEDED Status: Active Protocol: Document 07/28/23 10:40 AB (Rec: 07/28/23 14:50 AB [id number]) Physical Therapy Current Condition Current Condition Evaluation Date 07/28/23 Treatment Diagnosis L distal femur fx; difficulty in walking Onset Date 07/27/23 M3 PT-IP Subjective Start: 07/28/23 14:36 Freq: NEEDED Status: Active Protocol: Document 07/30/23 10:38 KS (Rec: 07/30/23 11:38 KS [id number]) Subjective Physical Therapy Visit Type Type Treatment Note Visit Start Time 10:38 Visit Stop Time 10:55 Number of SECURITY DISPATCHER Visits 1 Physical Therapy Visit Comments Patient Comments agreeable to do PT M4 PT-IP Mobility and Gait Start: 07/28/23 14:36 Freq: NEEDED Status: Active Protocol: Document 07/30/23 10:38 KS (Rec: 07/30/23 11:38 KS [id number]) PT-Bed Mobility Assessment Supine to Sit Supine to Sit Contact Guard Assistance PT-Transfer Assessment Sit to and From Stand Sit to and from Stand Minimal Assistance,1 Person Assistance,Use of Upper Extremities Equipment Transfer Assistive Device Gait Belt,Front Wheeled Walker Orthotic/Prosthetic Devices or Brace: No Transfers Transfer Destination Chair Transfer Technique Stand Step Pivot Transfer Ability Level of Assist Minimal Assistance,1 Person Assistance,Use of Upper Extremities Comments Mobility Comments Pt in bed upon arrival, agreeable to transfer to chair . CGA for sup<>sit and scooting EOB. Pt aware NWB. Immobilizer in place. Min A for sit<>stand w/ FWW. Pt able to hop/pivot transfer from bed to chair w/ only Min A today. Tolerated LE exercises well. Left in chair w/ family in room and all needs in reach . PT-Balance Assessment Sitting Balance and Reactions Static Sitting Balance Ability Good Dynamic Sitting Balance Ability Good Standing Balance and Reactions Static Standing Balance Ability Fair Dynamic Standing Balance Ability Poor Device Used FWW M5 PT-IP Objective Assessments Start: 07/28/23 14:36 Freq: NEEDED Status: Active Protocol: Document 07/28/23 10:40 AB (Rec: 07/28/23 14:50 AB [id number]) Orientation Orientation/Cognition Level of Alertness Alert Orientation Name,Place,Situation Language Function Ability Hard of Hearing Safety Awareness Decreased Safety Awareness Memory Description Short Term Impaired Gross Range of Motion Lower Extremity ROM Assessment Within Functional Limits Impairments L knee NT Coordination Assessment Gross Coordination Gross Coordination WNL Muscle Tone Muscle Tone WNL Yes M6 PT-IP Treatment Start: 07/28/23 14:36 Freq: NEEDED Status: Active Protocol: Document 07/30/23 10:38 KS (Rec: 07/30/23 11:38 KS [id number]) Physical Therapy Treatment Exercises Exercises Ankle Pumps,Gluteal Sets,Quad Sets,Heel Slides,Straight Leg Raises Education Education Provided Precautions,Weight Bearing Status,Safety M7 PT-IP Assessment and Plan Start: 07/28/23 14:36 Freq: NEEDED Status: Active Protocol: Document 07/30/23 10:38 KS (Rec: 07/30/23 11:38 KS [id number]) PT Summary Assessment and Plan Potential Rehabilitation Potential Fair Summary Impairments Pain,ROM,Strength,Balance, Coordination,Sensation,Tone, Cognition,Bed Mobility, Transfers,Gait,Activity Tolerance Progress Towards Goals Slow Progress due to Activity Tolerance,Slow Progress - Other Assessment Summary Pt showed great progress today and only needed Min A for transfer from bed to chair using FWW. Good carryover of transfer technique and no LOB. Also demonstrated good tolerance of LE exercises to promote strengthening. Pt plans to fly home to [place] tomorrow and go to SNF there. Goals Bed Mobility Goal Independent Transfer Goal Contact Guard Assistance,Front Wheeled Walker Gait Goal Contact Guard Assistance,Front Wheel Walker Gait Distance 25 Other Goals improve transfers using FWW mod I; ambulation using FWW ~ 40 ft SBA Days to Meet Goals 10 Frequency of Treatment Frequency Of Treatment Once a Day Treatment Plan Physical Therapy Treatment Plan Bed Mobility Training,Transfer Training,Gait Training, Therapeutic Exercise,Balance Retraining,Post Op Education, Discharge Planning,Hot or Cold Pack,Neuromuscular Re-ed, Coordination Retraining,Manual Therapy Precautions Brace L knee immobilizer Weight Bearing Status Weight Bearing Status Non-Weight Bearing Allowed Weight Bearing Amount (enter % LLE NWB or #) (%) Recommendations To Nursing Amount of Assist Needed 1 Person Assist Discharge Recommendations PT Discharge Recommendations SNF Rehab Transportation Needs at Discharge Wheelchair/Cabulance
--- NOTE | 2023-07-30 11:09 | P.PN_ITS ---
Subjective Subjective Interval history: Patient seen this morning. Resting comfortably. No acute distress. Pain well controlled. Plans are underway for her to go back to [place] in the near future. Family is coming from out of town to help her with travel arrangements. A wheelchair has been procured for her for transportation. Discharge medications have been sent previously Exam Vital Signs (past 8 hours): - 07/30/23 08:40 07/30/23 09:46 Pulse Rate 87 Respiratory Rate 16 Blood Pressure 158/77 H Pulse Oximetry 97 Oxygen Delivery Method Room Air Oxygen Delivery Method Room Air Oxygen Flow Rate 0 Narrative Exam Narrative: Left lower extremity maintained in knee immobilizer. Sensation intact to light touch in L2 through S1 nerve distributions. Flexes and extends hallux and ankle. Swelling present around the thigh Objective Imaging Left femur x-ray: My impression: Nondisplaced medial femoral condyle fracture around prior total knee arthroplasty Labs 07/28/23 06:26 [facility] Social History household members: significant other Smoking Status: Never smoker alcohol intake: current Assessment & Plan Assessment and plan (1) Closed left femoral fracture: Status: Acute Plan Plans are underway for the patient to returned to [place] in the near future. She will need to maintain a nonweightbearing status during transit. She has family coming to [place] in order to assist with this process. Prescriptions have previously been sent to a pharmacy for her to be filled prior to leaving the state. She is nonweightbearing. She has follow up arranged in [place]. She may very well elect to have surgery when she returns to [place] and I have discussed this with her power of real estate attorney in detail in the past. We will complete the discharge process today. Quality VTE Deep Vein Thrombosis/Pulmonary Embolism Present on Admission: No
--- NOTE | 2023-07-30 11:12 | P.DS_ITS ---
History of Present Illness History of Present Illness Chief complaint: LT FEMUR FRACTURE Narrative: 87-year-old female seen in my clinic today. She had presented to the emergency department yesterday and initially radiographs were read as negative however subsequent over-read indicated that she had a fracture. She was called with these results and brought to my clinic for determination of management. She has been here from [facility]. She was in [place] when the injury occurred. She reports that she got lightheaded and fell. Workup in the emergency department indicated that she had a urinary tract infection. She has been prescribed antibiotics for this. 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 These were both performed by Luis Lam in [place]. She reports pain in her left knee. She says it is worsened by movement and partially alleviated by rest. It has been present since the time of injury Discharge Providers Provider Date of admission: 07/27/23 15:36 Discharge Date: 07/30/23 Primary care physician: Doctor Johan MD Consults: 07/27/23 16:02 Consult to Discharge Planning Routine Comment: Consult to Physical Therapy Evaluate & Treat Comment: Physician Instructions: Evaluate and Treat 07/29/23 07:15 Consult to Physical Therapy Evaluate & Treat Comment: Wheelchair for home use Physician Instructions: Evaluate and Treat Discharge provider: Quoc Crisostomo MD Summary Hospital Course Discharge Diagnosis: Closed left femur fracture Hospital Course: Numerous discussions were had with the patient and her family regarding operative versus nonoperative treatment of her injury. Both have relative risks. Nonoperative treatment could result in blood clots or pneumonia because of the prolonged time in a nonweightbearing status. She would also certainly have atrophy and mobility deficits once resuming ambulation after her prolonged period of nonweightbearing. Alternatively operative fixation of her fracture would entail the risks inherent to all surgical procedures such as medical complications and anesthesia complications. Additionally opening up an incision around a prior total knee arthroplasty introduces the possibility of infection of the total knee. Additionally there is always the risk of damage to surrounding structures or failure of the bones to heal and the need for additional surgery. After a long discussion of these relative risks the patient ultimately wished to proceed with nonoperative treatment. We have therefore been working on making arrangements for her to return home to [place] in order to convalesce there. Exam Vital Signs (past 8 hours): - 07/30/23 08:40 07/30/23 09:46 Pulse Rate 87 Respiratory Rate 16 Blood Pressure 158/77 H Pulse Oximetry 97 Oxygen Delivery Method Room Air Oxygen Delivery Method Room Air Oxygen Flow Rate 0 Narrative Exam Narrative: Left lower extremity maintained in knee immobilizer. Sensation intact to light touch in L2 through S1 nerve distributions. Palpable DP pulse. Flexes and extends hallux and ankle. Range of motion examination deferred given known injury Objective Labs 07/28/23 06:26 [facility] Social History household members: significant other Smoking Status: Never smoker alcohol intake: current Discharge Assessment & Plan Assessment and Plan Assessment: Closed left femur fracture Plan of Treatment: Nonweightbearing left lower extremity Maintain knee immobilizer while sleeping and any time she is out of bed Multimodal pain med regimen Aspirin 325 mg DVT prophylaxis daily Follow up in [place] with orthopedic surgeon Discharge Plan Discharge Plan Patient Disposition: Home Discharge orders & Medications Prescriptions: New acetaminophen 325 mg Tablet 650 mg PO Q4H PRN (Reason: Fever/Mild Pain (1-3)) Qty: 60 0RF aspirin 325 mg Tablet,Delayed Release (Dr/Ec) 325 mg PO DAILY Qty: 45 0RF docusate sodium 100 mg Capsule 100 mg PO BID Qty: 20 0RF oxycodone 5 mg Tablet 5 mg PO Q3H PRN (Reason: Pain, Severe (7-10)) Qty: 30 0RF Continued losartan 50 mg tablet 75 mg PO DAILY cetirizine [Zyrtec] 10 mg Tablet PO DAILY Patient Comments: DOES NOT KNOW DOSE amlodipine 5 mg tablet 5 mg PO DAILY calcitriol 0.5 mcg Capsule 0.5 mcg PO DAILY mecobal-levomefolat Ca-B6 phos 3-35-2 mg Tablet 1 tab PO DAILY fluticasone furoate-vilanterol [Breo Ellipta] 100-25 mcg/dose blister with device 1 ea inhalation DAILY guaifenesin [Mucinex] 600 mg Tablet Extended Release 12hr 600 mg PO BID fluticasone propionate 50 mcg/actuation Castella,Suspension 2 spray INTRANASAL DAILY Rx Instructions: administer into each nostril levothyroxine [Synthroid] 88 mcg Tablet 88 mcg PO DAILY fluorometholone [FML Liquifilm] 0.1 % drops,suspension 1 drp EYE-BOTH Q OTHER DAY Pravachol 1 PO BEDTIME Patient Comments: DOES NOT KNOW DOSE Singulair 1 PO DAILY Patient Comments: DOSE NOT KNOW DOSE albuterol inhalation PRN PRN (Reason: SOB) Glucosamine Chondroitin 1 tab PO BID Patient Comments: DOES NOT KNOW DOSE CoQ10 SG 100 1 tab PO DAILY Patient Comments: DOES NOT KNOW DOSE Calcium-Vitamin D See Rx Instructions .ROUTE .COMPLEX Rx Instructions: 1 tab orally Q MONTH Adult Probiotic 2 cap PO PRN PRN (Reason: GUT) Patient Comments: DOES NOT KNOW DOSE omeprazole 20 mg capsule,delayed release(DR/EC) 20 mg PO BID Discontinued aspirin [Aspir-81] 81 mg Tablet,Delayed Release (Dr/Ec) 81 mg PO DAILY Follow up/Referrals: Johan,Doctor, [Primary Care Provider] - Activity Restrictions/Additional Instructions: Dispense wheelchair for home use and transportation back to [place] Discharge Health Status Care Plan Goals: Nonweightbearing left lower extremity and knee immobilizer, travel back to [place] where she is already made arrangements for follow-up. Diet/Activity/Treatments Diet: Diet as Tolerated Activity: Nonweightbearing in knee immobilizer, knee immobilizer may be removed when she is seated resting, Cold/Heat Therapy: Ice to knee as needed Other treatments: Aspirin 325 mg daily for DVT prophylaxis Visit Report/Discharge Packet Stand Alone Forms: Patient Portal/API, Stroke Signs & Symptoms Discharge Data Primary Care Provider: Johan,Doctor Quality VTE Deep Vein Thrombosis/Pulmonary Embolism Present on Admission: No
--- NOTE | 2023-07-30 12:19 | CM.DPNOTE ---
DCP Note TEXTILE CONVERTER reviewed EMR. Per Dr. Crisostomo, cleared to dc pt today. PT continues to rec SNF placement. TEXTILE CONVERTER met with pt and friend in room. Pt confirms family flying in to p/u pt soon. Plan to transport pt home tomorrow morning and will f/u with providers in [place] for rehab. Asked about taking home bed ish [facility] already made aware. Reports already having prescriptions to take home. pt denies other CM/DCP needs. P: Dc home with family today, family will assist in flying back home to [place]. CM team will continue to follow as needed. RADHA Branham
[2023-07-30 16:41] VITALS: PULSE 80; RESP 18
--- NOTE | 2023-07-30 17:56 | PC.NURSE ---
IV removed. Discussed medications, safe transfers, worsening symptoms, when to follow up. no further questions. Accompanied to private vehicle via w/c by RN and assisted in to car.
== END 2023-07-30 17:17 | disposition home or self-care (01) | DRG 534 ==
PROVIDERS: Admitting Provider Orthopaedic Surgery Adult Reconstructive Orthopaedic Surgery; Referring Provider Orthopaedic Surgery Adult Reconstructive Orthopaedic Surgery; Visit Provider Orthopaedic Surgery Adult Reconstructive Orthopaedic Surgery
DX: S72.435A Nondisplaced fracture of medial condyle of left femur, initial encounter for closed fracture (principal); W18.30XA Fall on same level, unspecified, initial encounter; Z96.652 Presence of left artificial knee joint; M97.12XA Periprosthetic fracture around internal prosthetic left knee joint, initial encounter; R55 Syncope and collapse; N39.0 Urinary tract infection, site not specified
CPT/HCPCS: 36415; 71045; 73502; 73562; 80053; 81001; 81003; 82550; 83605; 83690; 84145; 84484; 85025; 85027; 85610; 85730; 87040; 87086; 93005; 94640; 96365; 96375; 97110; 97163; 97530; 99284; G0378; G0379; J0696; J1200; J1885; J2405; J7613